=== PATIENT | male | born 1960 | race African-American/Black ===

== ENCOUNTER 2019-12-20 12:11 | Emergency (ER) | payer OTHER ==
[~2019-12-20] VITALS: Ht 177.8 cm; Wt 77.1 kg
--- NOTE | 2019-12-20 12:42 | Emergency Room Report ---
History of Present Illness General Chief Complaint: Generalized Weakness Source: Patient, EMS Present Illness HPI 59-year-old -[place] male with past medical history of alcohol abuse BIBA from [facility] for generalized weakness. Also states that his feet hurt from walking so much. He lost his left shoe. Per EMS, patient walked into [facility] and laid down on the floor saying he was "so hungry and weak". Patient states "when can I have something to eat?" No head trauma, COLMENARES, vision changes, visual blurring, photophobia, rash, neck pain, LOC, n/v/d, CP, SOB, abdominal pain, back pain, fever, cough, hemoptysis, melena, hematochezia, dysuria or scrotal/testicular complaints. The patient's symptoms were gradual onset, severity was moderate, duration since 1 day. Quality: Generalized weakness, no focal weakness Past medical history: alcohol abuse Past surgical history: Denies Smoking: Denies Alcohol use: ++ Drug use: Denies Review of systems: CONST: No fevers or chills, No night sweats PULMONARY: No productive cough, No shortness of breath CARDIAC: No chest pain, No palpitations GI: No vomiting, No diarrhea , No melena_or_BRBPR : No dysuria, No hematuria, No discharge NEURO: No new_focal_weakness_or_numbness, No confusion, No vision changes 14 point Review of Systems is otherwise negative except per HPI Physical Exam: GENERAL: Awake_alert_ nontoxic, no acute distress Spo2 100% on RA -normal EYES: Extraocular muscles are intact. Conjunctivae clear. Lids without swelling ENT: External nose and ear normal_in_appearance. Oropharynx clear. Head_ atraumatic, Moist_oral_mucosa NECK: No JVD. No meningismus. No thyromegaly. Supple. Trachea midline RESP: Normal respiratory effort. Symmetric rise. No stridor. Clear_to_ auscultation_No_rales_No_wheezes CARDIAC: Regular rate and regular rhytm. No_significant pedal edema. ABDOMEN: Soft. Nondistended. Nontender_No_rebound_or_guarding. MSK: Normal muscle tone, without rigidity. Extremities without asymmetric deformity or swelling. Bilateral foot/ankle exam: No swelling / effusion appreciated, No significant pain with passive range of motion Lateral malleolus: no tenderness / swelling / ecchymoses Medial malleolus: no tenderness / swelling / ecchymoses Dorsalis pedis pulse: 2+ Capillary refill: <3 seconds in all toes All toes: full range of motion without any tenderness / swelling / deformity / evidence of infection Base of the fifth metatarsal: no tenderness / swelling / ecchymoses Navicular: no tenderness / swelling / ecchymoses Calcaneus: no tenderness / swelling / ecchymoses Arch of the foot: no tenderness / swelling / ecchymoses Midfoot: no tenderness / swelling / ecchymoses Strength of dorsal / plantar flexion: normal 5/5 SKIN: Warm and dry. No visible cyanosis or pallor NEUROLOGIC: Alert, oriented x3. Motor_and_sensation_grossly_intact. No truncal ataxia. Gait_normal Psych: Normal mood and affect, normal judgment and insight - COORDINATION OF CARE Case was discussed with: Patient Any labs and imaging that were ordered were interpreted as part of the medical decision making: Medical Decision Making/Plan: Differential diagnosis for the patients symptoms include causes of peripheral vertigo (including BPPV, vestibular neuritis, Menieres disease, viral labyrinthitis), dehydration, alcohol abuse, acute anemia, severe dehydration, electrolyte abnormalities, among others. Patient's exam shows he is neuro intact. BS is on the low side. Patient was fed. EKG shows no signs of malignant arrhythmia such as Brugada syndrome, delta wave , epsilon wave, significant heart block, or QTc >500. CXR shows NAD. Troponin is negativex1. Labs show hypernatremia Na 147. CK mildly elevted. Negative for rhabdo. LFTs and INR are WNL. CT head and C spine negative The patient denies any external blood loss and has no significant pallor or evidence of acute anemia as a cause of their symptoms. Hemoglobin is not severely low, and acute blood transfusion is not indicated. In addition, the patient has no loud murmur or evidence of significant obstructive heart disease, symptoms are not in the setting of exertion. The patient is neurologically intact, with normal cerebellar exam, without any evidence of central vertigo as a cause of their symptoms. They appear well hydrated without any evidence of severe dehydration or acute hypovolemia. The patient was observed for a period of time, with symptoms improved, and no emergent cause of their symptoms. SF syncope criteria is negative Pt given hospital boot because he lost his shoe SW consulted for recommendations and resources as patient is homeless. The patient appears stable for discharge and to follow up with their regular doctor. Allergies: Uncoded Allergies: PENICILLIN (Allergy, Unknown, 12/20/19) COVID-19 Screening Contact w/high risk pt: No Experienced COVID-19 symptoms?: No COVID-19 Testing performed DETAIL DRAFTER: No Nursing Documentation-PMH Hx Hypertension: Yes Hx Diabetes: Yes Physical Exam Vital Signs Date Time Temp Pulse Resp B/P (MAP) Pulse Ox O2 Delivery O2 Flow Rate FiO2 12/20/19 12:02 98.1 98 16 129/96 (107) 98 Room Air Sp02 EP Interpretation: reviewed, normal Medical Decision Making Diagnostic Impression: Primary Impression: Dehydration Additional Impression: Foot pain, bilateral EKG Diagnostic Results PA Scribe Text 12-lead EKG (interpreted by me) Time: 1238 Indication: Rhythm analysis Tracing visualized and Interpreted by me. Rhythm: Normal sinus rhythm Rate: 82 bpm QTc: 462 Morphology: No_significant_ST_elevations_or_depressions, No STEMI Impression: Normal_sinus_rhythm_without_significant_abnormality Chest X-Ray Diagnostic Results Chest X-Ray Diagnostic Results : CHRISTINA Scribe Text Chest X-Ray: Views: 1 view(s) Indication: Generalized weakness Findings: Normal heart size. Mediastinum normal. No infiltrate. Impression: NAD The X-ray(s) were independently viewed and interpreted contemporaneously Electronically signed by , Mary Murrell, CT/MRI/US Diagnostic Results CT/MRI/US Diagnostic Results : Impression CT Head no Contrast Indications: Pain, status post fall, struck head Findings: No acute intracranial hemorrhage or edema. No mass effect nor midline shift. Normal size ventricles and extra axial CSF spaces. Normal chiu-white differentiation. Intact calvarium. Mastoids are clear. Visualized orbits and sinuses are unremarkable Impression: Negative CT C Spine no Contrast Indication: Pain, fell and hit neck Findings: Normal bony alignment. No prevertebral soft tissue swelling. No acute fractures. No dislocations. Vertebral body heights are preserved. There is degenerative narrowing the anterior atlantoaxial joint. At C2-3, there is bilateral facet arthrosis. There is mild degenerative disc narrowing. There is mild right neural foraminal stenosis. No significant disc bulge or protrusion or spinal stenosis. C3-4, there is mild degenerative disc narrowing. There is severe right and moderate to severe left neural foraminal stenosis. There is bilateral facet arthrosis. No significant disc bulge or protrusion or spinal stenosis. At C4-5, there is mild degenerative disc narrowing. There is mild to moderate bilateral neural foraminal stenosis. No significant disc bulge or protrusion or spinal stenosis. At C5-6, there is moderate degenerative disc narrowing. There is severe right, moderate to severe left neural foraminal stenosis. Posterior osteophytes and right paracentral disc protrusion results in mild narrowing of the spinal canal and possibly of the right lateral recess. At C6-7, there is mild to moderate degenerative disc narrowing. There is considerable subchondral sclerosis and some endplate irregularity of the adjacent endplates. There is left paracentral disc protrusion which results in mild canal stenosis and may compromise the left lateral recess. There is mild to moderate right neural foraminal stenosis. There is some facet arthrosis on the left. C7-T1, no significant disc bulge or protrusion, spinal stenosis, or neural foraminal narrowing. Reevaluation Time: 13:48 Last Vital Signs Date Time Temp Pulse Resp B/P (MAP) Pulse Ox O2 Delivery O2 Flow Rate FiO2 12/20/19 12:02 98.1 98 16 129/96 (107) 98 Room Air Status: improved Disposition: HOME, SELF-CARE Admit Decision Time: 13:48 Scripts Acetaminophen* (TYLENOL EXTRA STRENGTH*) 500 Mg Tablet 500 MG ORAL Q8H PRN for Prn Headache/Temp > 101, #30 TAB 0 Refills Prov: Mary Murrell D.O. 12/20/19 Patient Instructions: Dehydration, Adult, Oeom-tv-Lpdv Additional Instructions: Instructions for patient/client portfolio manager: Follow up with your physician in 1-2 days. Follow-up with your doctor sooner if your condition requires a more timely clinical reevaluation. Return to the emergency department immediately if you feel that your condition is worsening or if you have any new or concerning symptoms. Review your discharge instructions and take any prescriptions given as instructed. Mary Murrell D.O. Dec 20, 2019 12:42
--- NOTE | 2019-12-20 12:47 | NUR ---
ED Nurse Note: Patient taken to CT scan in [facility].
--- NOTE | 2019-12-20 12:50 | NUR ---
ED Nurse Note: Patient brought in by ambulance from [facility] due to generalized weakness. EMS reports patient collapsed in the coffee shop and denies any loss of consciousness. Patient reported he hit the head on the floor, tile. No visible head trauma noted. Patient denies pain in the head or neck, but c/o low back pain. Dr. Murrell notified and made aware. Patient awake, alert, oriented x 4. Regular, unlabored breathing noted. Placed patient on laundry technician. Bed in lowest position. Urinal at bedside.
[2019-12-20] MEDS ORDERED: Thiamine 100mg tab ORAL ONE ×2 (13:00)
[2019-12-20 13:04] LABS: ANION GAP 9 mmol/L (5-15); BLOOD UREA NITROGEN 7 mg/dL (7-18); CARBON DIOXIDE 30 MMOL/L (21-32); CHLORIDE 108 MMOL/L (98-107); CREATININE 0.8 MG/DL (0.55-1.30); POTASSIUM 4.2 MMOL/L (3.5-5.1); SODIUM 147 MMOL/L (136-145)
--- NOTE | 2019-12-20 13:07 | NUR ---
ED Nurse Note: Patient returned from CT scan. Placed patient back on cardiac rehabilitation specialist. Bed in lowest position.
[2019-12-20 13:14] LABS: ALANINE AMINOTRANSFERASE 18 U/L (12-78); ALBUMIN 3.8 G/DL (3.4-5.0); ALBUMIN/GLOBULIN RATIO 0.9 (1.0-2.7); ALKALINE PHOSPHATASE 95 U/L (46-116); ASPARTATE AMINO TRANSFERASE 28 U/L (15-37); BILIRUBIN,TOTAL 0.4 MG/DL (0.2-1.0); CREATINE KINASE 688 U/L (26-308)
[2019-12-20 13:16] LABS: BASOPHILS % (AUTO) 1.7 % (0.0-2.0); EOSINOPHILS % (AUTO) 2.1 % (0.0-3.0); HEMATOCRIT 47.6 % (42.0-52.0); HEMOGLOBIN 15.5 G/DL (14.2-18.0); LYMPHOCYTES % (AUTO) 43.6 % (20.0-45.0); MEAN CORPUSCULAR VOLUME 91 FL (80-99); MONOCYTES % (AUTO) 10.7 % (1.0-10.0); NEUTROPHILS % (AUTO) 41.9 % (45.0-75.0); PLATELET COUNT 255 K/UL (150-450); RED CELL DISTRIBUTION WIDTH 14.2 % (11.6-14.8); WHITE BLOOD COUNT 4.5 K/UL (4.8-10.8)
[2019-12-20 13:17] VITALS: BP 136/93
--- NOTE | 2019-12-20 13:24 | NUR ---
ED Nurse Note: Patient admitted to drinking alcohol everday. Denies SI/HI.
[2019-12-20] MEDS ORDERED: TYLENOL EXTRA500 MG ORAL (13:48)
--- NOTE | 2019-12-20 13:48 | Diagnostic Imaging Report ---
Indication: Pain, fell and hit neck Technique: Spiral acquisitions obtained through the cervical spine. No IV contrast utilized. Multiplanar reconstructions were generated. Total dose length product 480 mGycm. CTDIvol(s) 20 mGy. Dose reduction achieved using automated exposure control. Comparison: none Findings: Normal bony alignment. No prevertebral soft tissue swelling. No acute fractures. No dislocations. Vertebral body heights are preserved. There is degenerative narrowing the anterior atlantoaxial joint. At C2-3, there is bilateral facet arthrosis. There is mild degenerative disc narrowing. There is mild right neural foraminal stenosis. No significant disc bulge or protrusion or spinal stenosis. C3-4, there is mild degenerative disc narrowing. There is severe right and moderate to severe left neural foraminal stenosis. There is bilateral facet arthrosis. No significant disc bulge or protrusion or spinal stenosis. At C4-5, there is mild degenerative disc narrowing. There is mild to moderate bilateral neural foraminal stenosis. No significant disc bulge or protrusion or spinal stenosis. At C5-6, there is moderate degenerative disc narrowing. There is severe right, moderate to severe left neural foraminal stenosis. Posterior osteophytes and right paracentral disc protrusion results in mild narrowing of the spinal canal and possibly of the right lateral recess. At C6-7, there is mild to moderate degenerative disc narrowing. There is considerable subchondral sclerosis and some endplate irregularity of the adjacent endplates. There is left paracentral disc protrusion which results in mild canal stenosis and may compromise the left lateral recess. There is mild to moderate right neural foraminal stenosis. There is some facet arthrosis on the left. C7-T1, no significant disc bulge or protrusion, spinal stenosis, or neural foraminal narrowing. Impression: The CT scanner at [facility] is accredited by the [employer] and the scans are performed using protocols designed to limit radiation exposure to as low as reasonably achievable to attain images of sufficient resolution adequate for diagnostic evaluation.
--- NOTE | 2019-12-20 13:50 | Diagnostic Imaging Report ---
Indications: Pain, status post fall, struck head Technique: Spiral acquisitions obtained through the brain. Angled axial and coronal 5 x 5 mm slices were reconstructed. Total dose length product 1152 mGycm. CTDI vol(s) 53 mGy. Dose reduction achieved using automated exposure control Comparison: None. Findings: No acute intracranial hemorrhage or edema. No mass effect nor midline shift. Normal size ventricles and extra axial CSF spaces. Normal chiu-white differentiation. Intact calvarium. Mastoids are clear. Visualized orbits and sinuses are unremarkable Impression: Negative The CT scanner at [facility] is accredited by the [employer] and the scans are performed using protocols designed to limit radiation exposure to as low as reasonably achievable to attain images of sufficient resolution adequate for diagnostic evaluation.
--- NOTE | 2019-12-20 13:53 | NUR ---
ED Nurse Note: Provided sandwiches and juice. Patient tolerating oral intake without N/V.
--- NOTE | 2019-12-20 14:25 | NUR ---
ED Nurse Note: sub assembly team worker at bedside. 2L IV fluids running via left AC. Remined patient again to keep the left arm straight.
--- NOTE | 2019-12-20 14:26 | NUR ---
FLEXIBLE NANNY NOTE SW met w/ pt to discuss social work program coordinator concern/needs. Pt reports he is residing alone at [address] [address]. Pt reports he is ambulatory w/o DMEs and independent w/ ADLs and IADLs. Pt reports having family members but pt declined to provide emergency contact. Pt did not provide any contact information to verify his address. Pt states he is aware of the hospital location and he will be able to return home upon DC. Pt shares he uses THC and ETOH. Pt declined counseling/tx intervention/resource on substance abuse rehab. No concern/needs expressed by pt.
[2019-12-20] MEDS ORDERED: D5 1/2NS 1,000 ML IV SCH (15:30)
[2019-12-20 15:38] VITALS: BP 161/97
--- NOTE | 2019-12-20 16:56 | Diagnostic Imaging Report ---
Indication: Cough Technique: One view of the chest Comparison: none Findings: Lungs and pleural spaces are clear. Heart size is normal. Impression: No acute process
--- NOTE | 2019-12-20 17:46 | NUR ---
ED Nurse Note: Report given to MAN Gonzalez at [facility]. Informed [facility] BLS will grape picker around 1730.
[2019-12-20 18:25] VITALS: BP 151/94
== END 2019-12-20 18:36 | disposition home or self-care (01) ==
LOC: EDBD 12:11 → EMR 13:11
DX: E86.0 Dehydration (principal); M25.572 Pain in left ankle and joints of left foot; M25.571 Pain in right ankle and joints of right foot; I10 Essential (primary) hypertension; E11.9 Type 2 diabetes mellitus without complications; Z88.0 Allergy status to penicillin
CPT/HCPCS: 36415; 70450; 71045; 72125; 80053; 80307; 82550; 82962; 83690; 83880; 84484; 85025; 93005; 96360; 96361; J7030; U0002; Z7502; 99284